=== PATIENT | female | born 1980 | race Caucasian/White ===

== ENCOUNTER 2025-04-25 08:41 | Emergency (ER) | payer BC ==
[~2025-04-25] VITALS: Ht 170.2 cm; Wt 93.0 kg
[2025-04-25] MEDS ORDERED: Ketorolac Tromethamine 15mg Vial IM ONE (09:25)
[2025-04-25] MEDS ORDERED: Methyl Salicylate/Menth/Camph 57 GM TUBE EXT ONE (09:25)
[2025-04-25] MEDS ORDERED: Cyclobenzaprine5 MG PO (10:25)
[2025-04-25] MEDS ORDERED: ETOD300 PO (10:25)
[2025-04-25] MEDS ORDERED: BUPR100ER PO (10:26)
[2025-04-25] MEDS ORDERED: NORGESTIMATE-E1 EAC1 PO (10:26)
[2025-04-25] MEDS ORDERED: HYDROcodone 5-APAP 325 TAB PO ONE (11:05)
[2025-04-25] MEDS ORDERED: LIDO700A20 TOP (12:42)
[2025-04-25] MEDS ORDERED: TIZA4 PO (12:42)
== END 2025-04-25 12:51 | disposition home or self-care (01) ==
LOC: ER 08:41
DX: M62.830 Muscle spasm of back (principal); E78.5 Hyperlipidemia, unspecified; Z88.8 Allergy status to other drugs, medicaments and biological substances; Z79.3 Long term (current) use of hormonal contraceptives; Z79.899 Other long term (current) drug therapy; Z59.89 Other problems related to housing and economic circumstances
CPT/HCPCS: 96372; 99282-25; A9270; J1885